=== PATIENT | female | born 2000 | race Caucasian/White ===

== ENCOUNTER 2021-03-28 04:09 | Emergency (ER) | payer OTHER ==
[2021-03-28] MEDS ORDERED: Ondansetron PF 4 MG/2 ML Vial ONE (04:45)
[2021-03-28] MEDS ORDERED: Pantoprazole 40 MG VIAL ONE (04:45)
[2021-03-28 17:44] LABS: SARS-CoV-2 PCR by NAA DETECTED (NotDetected)
== END 2021-03-28 06:15 | disposition home or self-care (01) ==
LOC: BURERS 04:09
DX: U07.1 COVID-19 (principal)
CPT/HCPCS: 96374; 96375; C9113; J2405; U0003; U0005